=== PATIENT | male | born 1960 | race Caucasian/White ===

== ENCOUNTER 2023-07-31 23:14 | Inpatient (IN) | payer OTHER ==
[~2023-07-31 23:14] MED LIST: Iopamidol-370 76% 500 ML MDV (1 ML CHARGE) ONE
[2023-08-01] MEDS ORDERED: fentaNYL 50 mcg/mL 1 mL Vial ONE (00:10)
[2023-08-01 00:28] LABS: #Basophils 0.1 thou/uL (0.0-0.2); #Eosinphils 0.1 thou/uL (0.0-0.7); #Monocytes 1.3 thou/uL (0.11-0.59); #Neutrophils 19.5 thou/uL (1.40-6.50); %Basophils 0.3 % (0.0-1.0); %Eosinophils 0.3 % (0.0-10.0); %Lymphocytes 4.7 % (21.0-51.0); %Monocytes 5.7 % (0.0-10.0); %Neutrophils 88.3 % (42.0-75.0); Hematocrit 42.4 % (42.0-52.0); Hemoglobin 14.4 g/dL (14.0-18.0); Mean Corpuscular Hemoglobin 30.6 pg (27.0-31.0); Mean Corpuscular Volume 90.2 fl (78.0-98.0); Mean Platelet Volume 9.4 fL (7.4-10.4); Platelet Count 187 10x3/uL (130-400); RBC Distribution Width 12.5 % (11.5-14.5); White Blood Cell (WBC) Count 22.1 10x3/uL (4.8-10.8)
[2023-08-01] MEDS ORDERED: Morphine 4 MG/ML VIAL ONE (00:37)
[2023-08-01] MEDS ORDERED: hydrALAZINE 20 MG/ML VIAL SLOW IVP PRN (00:44)
[2023-08-01] MEDS ORDERED: Dextrose 50% Abboject 50 ML SYRINGE SLOW IVP PRN (00:44)
[2023-08-01] MEDS ORDERED: Glucagon 1 MG/ML KIT IM PRN (00:44)
[2023-08-01] MEDS ORDERED: Ondansetron PF 4 MG/2 ML Vial IVP PRN (00:44)
[2023-08-01] MEDS ORDERED: Dextrose 5% in Water 1,000 ML IV PRN (00:44)
[2023-08-01 00:51] LABS: ALT (SGPT) 44 U/L (8-55); AST (SGOT) 69 U/L (5-34); Albumin 3.6 g/dL (3.4-4.8); Alkaline Phosphatase 82 U/L (40-110); Anion Gap 15 mmol/L (10-20); BUN (Urea Nitrogen) 13 mg/dL (8.4-25.7); Bilirubin, Total 0.8 mg/dL (0.2-1.2); Calc. Creatinine Clearance 0 mL/min (70-130); Calcium 8.1 mg/dL (7.8-10.44); Carbon Dioxide 23 mmol/L (23-31); Chloride 96 mmol/L (98-107); Estimated GFR 78; Globulin 2.8 g/dL (2.4-3.5); Glucose 301 mg/dL (80-115); Potassium 4.4 mmol/L (3.5-5.1); Protein, Total 6.4 g/dL (5.8-8.1); Sodium 130 mmol/L (136-145)
[2023-08-01] MEDS ORDERED: Bupivacaine PF 0.5% 30 ML VIAL ONE (00:51)
[2023-08-01 00:56] LABS: Acetaminophen Less than 10 mcg/mL (10.0-30.0); Alcohol Less than 10.0 mg/dL (Less than 10); Lipase 29 U/L (8-78); Salicylate Less than 8.0 mg/dL (15.0-30.0)
[2023-08-01 01:00] LABS: Troponin I Less than 0.010 ng/mL (< 0.028)
[2023-08-01] MEDS: Sodium Chloride 0.9% 1,000 ML IV SCH ×2 (02:44→07:24)
[2023-08-01] MEDS: Morphine 2 MG/ML VIAL SLOW IVP PRN (02:53)
[2023-08-01] MEDS: Cyclobenzaprine 10 MG TAB PO PRN (02:53)
[2023-08-01 05:21] LABS: #Monocytes 0.8 thou/uL (0.11-0.59); #Neutrophils 15.8 thou/uL (1.40-6.50); %Basophils 0.2 % (0.0-1.0); %Lymphocytes 3.3 % (21.0-51.0); %Monocytes 4.7 % (0.0-10.0); %Neutrophils 91.3 % (42.0-75.0); Hematocrit 40.6 % (42.0-52.0); Hemoglobin 13.8 g/dL (14.0-18.0); Mean Corpuscular Hemoglobin 30.8 pg (27.0-31.0); Mean Corpuscular Volume 90.6 fl (78.0-98.0); Mean Platelet Volume 10.3 fL (7.4-10.4); Platelet Count 158 10x3/uL (130-400); RBC Distribution Width 12.5 % (11.5-14.5); Red Blood Cell (RBC) Count 4.48 mill/uL (4.70-6.10); White Blood Cell (WBC) Count 17.3 10x3/uL (4.8-10.8)
[2023-08-01 05:43] LABS: Phosphorus 3.1 mg/dL (2.3-4.7)
[2023-08-01 05:50] LABS: Anion Gap 15 mmol/L (10-20); BUN (Urea Nitrogen) 14 mg/dL (8.4-25.7); Calc. Creatinine Clearance 0 mL/min (70-130); Calcium 8.2 mg/dL (7.8-10.44); Carbon Dioxide 22 mmol/L (23-31); Chloride 97 mmol/L (98-107); Estimated GFR 79; Glucose 332 mg/dL (80-115); Magnesium 1.7 mg/dL (1.6-2.6); Sodium 129 mmol/L (136-145)
[2023-08-01 06:11] VITALS: BMI 34.4
[2023-08-01] MEDS: traMADol HCl 50 MG TAB PO SCH (06:12)
[2023-08-01] MEDS: HumaLOG 300 UNITS/3 ML VIAL SC PRN (06:13)
[2023-08-01] MEDS: Acetaminophen 500 MG TAB PO SCH (06:13)
[2023-08-01] MEDS: Ipratropium/Albuterol 3 ML NEB NEB SCH (08:04)
[2023-08-01] MEDS: Senokot S 8.6-50 MG TAB PO SCH (09:11)
[2023-08-01] MEDS: Polyethylene Glycol 3350 17 GM Packet PO SCH (09:11)
[2023-08-01] MEDS: Gabapentin 100 MG CAP PO SCH (09:11)
[2023-08-01] MEDS: Famotidine/PF 20 mg/2ml Vial SLOW IVP SCH (09:13)
[2023-08-01] MEDS: Magnesium 2 GM/50 ML(in water) 2 GM in Premix 1 BAG IVPB SCH (11:41)
[2023-08-01] MEDS: Sodium Chloride 1 GM TAB PO SCH (14:01)
[2023-08-01] MEDS: Carvedilol 6.25 MG TAB PO SCH (17:32)
[2023-08-01] MEDS: traMADol HCl 50 MG TAB PO PRN (19:50)
[2023-08-01] MEDS: Insulin Glargine 30 UNITS/0.3 ML VIAL SC SCH (21:42)
[2023-08-02] MEDS ORDERED: Morphine 2 MG/ML VIAL SLOW IVP PRN (05:00)
[2023-08-02 06:20] LABS: Anion Gap 10 mmol/L (10-20); BUN (Urea Nitrogen) 16 mg/dL (8.4-25.7); Calc. Creatinine Clearance 131 mL/min (70-130); Calcium 8.3 mg/dL (7.8-10.44); Carbon Dioxide 25 mmol/L (23-31); Chloride 100 mmol/L (98-107); Estimated GFR 96; Glucose 272 mg/dL (80-115); Sodium 131 mmol/L (136-145)
[2023-08-02] MEDS: Ibuprofen 200 MG TAB PO SCH (13:16)
[2023-08-02] MEDS: Gabapentin 300 MG CAP PO SCH (14:53)
[2023-08-02] MEDS: Insulin Regular 300 UNITS/3 ML VIAL SC PRN (22:08)
[2023-08-03 04:10] LABS: #Basophils 0.1 thou/uL (0.0-0.2); #Eosinphils 0.3 thou/uL (0.0-0.7); #Monocytes 1.3 thou/uL (0.11-0.59); #Neutrophils 8.3 thou/uL (1.40-6.50); %Basophils 0.6 % (0.0-1.0); %Eosinophils 2.9 % (0.0-10.0); %Lymphocytes 15.8 % (21.0-51.0); %Monocytes 10.5 % (0.0-10.0); %Neutrophils 69.9 % (42.0-75.0); Hematocrit 35.2 % (42.0-52.0); Hemoglobin 12.4 g/dL (14.0-18.0); Mean Corpuscular HGB CONC 35.2 g/dL (32.0-36.0); Mean Corpuscular Hemoglobin 31.6 pg (27.0-31.0); Mean Corpuscular Volume 89.8 fl (78.0-98.0); Mean Platelet Volume 9.5 fL (7.4-10.4); Platelet Count 186 10x3/uL (130-400); RBC Distribution Width 12.6 % (11.5-14.5); Red Blood Cell (RBC) Count 3.92 mill/uL (4.70-6.10); White Blood Cell (WBC) Count 11.9 10x3/uL (4.8-10.8)
[2023-08-03 04:47] LABS: Anion Gap 8 mmol/L (10-20); BUN (Urea Nitrogen) 19 mg/dL (8.4-25.7); Calc. Creatinine Clearance 113 mL/min (70-130); Calcium 8.4 mg/dL (7.8-10.44); Carbon Dioxide 29 mmol/L (23-31); Chloride 100 mmol/L (98-107); Estimated GFR 82; Glucose 206 mg/dL (80-115); Magnesium 2.2 mg/dL (1.6-2.6); Phosphorus 2.1 mg/dL (2.3-4.7); Potassium 3.7 mmol/L (3.5-5.1); Sodium 133 mmol/L (136-145)
[2023-08-03] MEDS: Famotidine 20 MG TAB PO SCH (08:27)
[2023-08-03] MEDS: Lidocaine 4% Patch TD SCH (13:44)
[2023-08-03] MEDS: traMADol HCl 50 MG TAB PO SCH (17:35)
[2023-08-04] MEDS: Transdermal Patch Removal TOP SCH (02:30)
[2023-08-05 08:18] VITALS: TEMP 98.4
[2023-08-05 08:27] VITALS: BP 132/78
== END 2023-08-05 11:05 | disposition home or self-care (01) | DRG 200 ==
LOC: ERS 23:14 → SURG A 08-01 00:44 → UNDODISIN 08-04 16:30
PROVIDERS: ADMIT Specialist; ATTEND Specialist
DX: S27.0XXA Traumatic pneumothorax, initial encounter (principal); E87.1 Hypo-osmolality and hyponatremia; S22.43XA Multiple fractures of ribs, bilateral, initial encounter for closed fracture; I42.8 Other cardiomyopathies; T79.7XXA Traumatic subcutaneous emphysema, initial encounter; S42.001A Fracture of unspecified part of right clavicle, initial encounter for closed fracture; F41.9 Anxiety disorder, unspecified; I50.9 Heart failure, unspecified; S01.01XA Laceration without foreign body of scalp, initial encounter; E83.41 Hypermagnesemia; Z88.8 Allergy status to other drugs, medicaments and biological substances; V89.2XXA Person injured in unspecified motor-vehicle accident, traffic, initial encounter; Y92.89 Other specified places as the place of occurrence of the external cause; I25.2 Old myocardial infarction
CPT/HCPCS: 36415; 36416; 70450; 71045; 71260; 72125; 74177; 80048; 80053; 80307; 83690; 83735; 84100; 84484; 85025; 86850; 86900; 86901; 93005; 93306; 94640; 96374; G0390; J0665; J1815; J2270; J2272; J3010; J3475; J7620; Q9967; S0028